=== PATIENT | male | born 2000 | race Caucasian/White ===

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

== ENCOUNTER 2020-05-24 16:06 | Emergency (ER) | payer MEDICAID, SELFPAY ==
[~2020-05-24] VITALS: Ht 172.7 cm; Wt 68.0 kg
[2020-05-24 16:08] VITALS: BP 130/79; Ht 172.7 cm; Wt 68.0 kg
== END 2020-05-24 17:26 | disposition home or self-care (01) ==
LOC: ED 16:06
DX: U07.1 COVID-19 (principal); B34.9 Viral infection, unspecified
CPT/HCPCS: U0003